=== PATIENT | female | born 1965 | race Caucasian/White ===

== ENCOUNTER 2017-05-07 07:15 | Inpatient (IN) | payer OTHER ==
[2017-05-07] MEDS ORDERED: morphINE PF 5 MG/10 ML INJ IT ONE (10:39)
[2017-05-07] MEDS ORDERED: ceFAZolin 2 GM/SWFI 2 GM/20 ML SYR IVP ONE (10:39)
[2017-05-07] MEDS ORDERED: morphINE SR 15 MG TAB PO ONE (10:39)
[2017-05-07] MEDS ORDERED: GABAPENTIN 300 MG CAP PO ONE (10:39)
[2017-05-07] MEDS ORDERED: ACETAMINOPHEN 500 MG TAB PO ONE (10:39)
[2017-05-07] MEDS ORDERED: LIDOCAINE 1% 2 ML INJ ID PRN (10:41)
[2017-05-07] MEDS ORDERED: LR 1,000 ML IV ONE (10:42)
[2017-05-07] MEDS ORDERED: LIDOCAINE 1% 2 ML INJ ONE (11:21)
[2017-05-07] MEDS ORDERED: THROMBIN (BOVINE) 20,000 UNIT VIAL TP ONE (11:35)
[2017-05-07] MEDS ORDERED: CHLORHEXIDINE GLUC HIBICLENS 118 ML BTL TP ONE (11:35)
[2017-05-07] MEDS ORDERED: BUPIVACAINE 0.25% 30 ML SDV ONE (11:35)
--- NOTE | 2017-05-07 11:35 | PDHPUP ---
History & Physical Update H&P update statement: This history and physical update is based on an assessment of the patient which was completed after admission or registration (within 24 hours), but prior to the surgery/procedure. H&P update: H&P reviewed & patient examined, no change in patient's condition since H&P completed (Consents signed and site marked. All questions answered.)
[2017-05-07] MEDS ORDERED: BACITRACIN 50,000 UNITS/10 ML SYR IRR ONE (11:36)
[2017-05-07] MEDS ORDERED: PROPOFOL/EMULSION 500 MG/50 ML BOTTLE IV ONE ×2 (11:43→12:08)
[2017-05-07] MEDS ORDERED: fentaNYL 250 MCG/5 ML INJ ONE (11:45)
[2017-05-07] MEDS ORDERED: MIDAZOLAM 2 MG/2 ML VIAL IVP ONE (12:01)
[2017-05-07] MEDS ORDERED: MIDAZOLAM 2 MG/2 ML VIAL ONE (12:01)
--- NOTE | 2017-05-07 12:03 | PDANEPAE ---
ANE History of Present Illness 51 year old woman for TLIF. Otherwise healthym ANE Past Medical History - Cardiovascular History Hx Hypertension: No Hx Arrhythmias: No Hx Chest Pain: No Hx Coronary Artery / Peripheral Vascular Disease: No Hx CHF / Valvular Disease: No Hx Palpitations: No Cardiovascular History Comment: PRE ECLAMPTIC W/FIRST CHILD - Pulmonary History Hx COPD: No Hx Asthma/Reactive Airway Disease: No Hx Recent Upper Respiratory Infection: No Hx Oxygen in Use at Home: No Hx Sleep Apnea: No Sleep Apnea Screening Result - Last Documented: Negative Pulmonary History Comment: ENVIRONMENTAL ALLERGIES - Neurologic History Hx Cerebrovascular Accident: No Hx Seizures: No Hx Dementia: No Neurologic History Comment: OCCAS MIGRAINES - OPTIC NERVE - Endocrine History Hx Diabetes: No - Renal History Hx Renal Disorders: No - Liver History Hx Hepatic Disorders: No - Neurological & Psychiatric Hx Hx Neurological and Psychiatric Disorders: Yes Neurological / Psychiatric History Comment: ANXIETY RELATED TO STRESS - Cancer History Hx Cancer: No - Congenital Disorder History Hx Congenital Disorders: No - GI History Hx Gastrointestinal Disorders: No - Other Health History Other Health History: OCCAS LOW BLOOD COUNTS(BORDERLINE) - Chronic Pain History Chronic Pain: Yes (BACK,HIP PAIN) - Surgical History Prior Surgeries: 2017 CYST ASPIRATION. KNEE R MENISCUS SCOPE 2011. C SECTION X2 ANE Review of Systems Review of Systems: - Exercise capacity METS (RN): 5 METS ANE Patient History - Allergies Allergies/Adverse Reactions: No Known Allergies Allergy (Unverified 03/31/17 10:24) - Home Medications Home Medications: Acetaminophen [Tylenol 325mg (*)] 325 mg PO DAILY PRN 03/31/17 [Last Taken 04/19] Albuterol [Proventil Inhaler HFA (*)] 1 - 2 puffs IH DAILY PRN 03/31/17 [Last Taken 05/07/16] Ibuprofen [Motrin (*)] 200 mg PO DAILY PRN 03/31/17 [Last Taken 04/19/17] Naproxen Sodium [Aleve 220 MG (*)] 220 mg PO BID PRN 03/31/17 [Last Taken ] - NPO status NPO Since - Liquids (Date): 05/07/17 NPO Since - Liquids (Time): 08:30 NPO Since - Solids (Date): 05/06/17 NPO Since - Solids (Time): 19:30 - Smoking Hx Smoking Status: Never smoked - Family Anes Hx Family Hx Anesthesia Complications: FATHER & MOTHER SENSITIVE TO ANESTH & PAIN MEDS ANE Labs/Vital Signs - Vital Signs Blood Pressure: 122/82 Heart Rate: 73 Respiratory Rate: 16 O2 Sat (%): 97 Height: 167.64 cm Weight: 58.967 kg ANE Physical Exam - Airway Mallampati Score: Class 2 Mouth exam: normal dental/mouth exam - Pulmonary Pulmonary: no respiratory distress - Cardiovascular Cardiovascular: regular rate and rhythym - ASA Status ASA Status: I
[2017-05-07] MEDS ORDERED: ONDANSETRON 4 MG/2 ML VIAL IVP PRN ×2 (12:44→15:11)
[2017-05-07] MEDS ORDERED: ACETAMINOPHEN 500 MG TAB PO PRN (12:44)
[2017-05-07] MEDS ORDERED: MEPERIDINE 25 MG/ML SYR IVP PRN (12:44)
[2017-05-07] MEDS ORDERED: fentaNYL 100 MCG/2 ML INJ IVP PRN (12:44)
[2017-05-07] MEDS ORDERED: DEXAMETHASONE 4 MG/ML VIAL IVP PRN (12:44)
[2017-05-07] MEDS ORDERED: OXYCODONE/APAP 5/325 TAB PO PRN (12:44)
[2017-05-07] MEDS ORDERED: METOCLOPRAMIDE 10 MG/2 ML VIAL IVP PRN (12:44)
[2017-05-07] MEDS ORDERED: ALBUTEROL 3 ML DEYVIAL IH PRN (12:44)
[2017-05-07] MEDS ORDERED: HYDROCODONE/APAP 5/325 TAB PO PRN (12:44)
[2017-05-07] MEDS ORDERED: PROMETHAZINE HCL 25 MG/ML INJ IVP PRN (12:44)
[2017-05-07] MEDS ORDERED: LR 500 ML IV PRN (12:44)
[2017-05-07] MEDS ORDERED: LABETALOL HCL 50 MG/10 ML SYR IVP PRN (12:44)
[2017-05-07] MEDS ORDERED: NALOXONE HCL 0.4 MG/ML INJ IVP PRN (12:44)
[2017-05-07] MEDS ORDERED: morphINE PF 5 MG/10 ML INJ ONE (13:58)
[2017-05-07] MEDS ORDERED: MAGNESIUM HYDROXIDE 30 ML UDCUP PO PRN (15:11)
[2017-05-07] MEDS ORDERED: ONDANSETRON DISINTEGRATING 4 MG TAB PO PRN (15:11)
[2017-05-07] MEDS ORDERED: LACTULOSE 20 GM/30 ML UDCUP PO PRN (15:11)
[2017-05-07] MEDS ORDERED: HYDROmorphone HCL/NS/PF 0.4 MG/2 ML SYR IVP PRN (15:11)
[2017-05-07] MEDS ORDERED: BISACODYL 10 MG SUPP PR PRN (15:11)
[2017-05-07] MEDS ORDERED: POLYETHYLENE GLYCOL 3350 17 GM PKT PO PRN (15:11)
[2017-05-07] MEDS ORDERED: diphenhydrAMINE 25 MG CAP PO PRN (15:11)
--- NOTE | 2017-05-07 15:13 | POSTANESTH ---
Post Anesthetic Evaluation Respiratory Status: Normal, Stable Level of Consciousness/Mental Status: Mildly Sleepy, Arousable Pain Control: Adequate, Prn Tx Ordered Nausea/Vomiting Control: Adequate, Prn Tx Ordered Complications Possibly Related to Anesthesia: None Noted
[2017-05-07] MEDS ORDERED: NS W/ 20 KCl/L 1,000 ML IV SCH (15:15)
[2017-05-07] MEDS ORDERED: ALBUTEROL 200 PUFFS/18 GM MDI IH PRN (15:17)
--- NOTE | 2017-05-07 15:23 | POSTOPPROG ---
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
[2017-05-07] MEDS ORDERED: MEPERIDINE 25 MG/ML SYR ONE (15:29)
[2017-05-07] MEDS: DIAZEPAM 10 MG/2 ML SYR IVP PRN ×2 (15:40→15:50)
[2017-05-07] MEDS ORDERED: DIAZEPAM 10 MG/2 ML SYR ONE (15:40)
--- NOTE | 2017-05-07 17:08 | GOP ---
[f rep st] OPERATIVE REPORT DATE OF OPERATION: 05/07/2017 SURGEON: Fernando Perales MD COMPLICATIONS: None. OVERHEAD CLEANER MAINTAINER: MADIHA Valdez. ANESTHESIA: General. PREOPERATIVE DIAGNOSIS: 1. L4-L5 spondylolisthesis. 2. L4-5 epidural compressive lesion with severe spinal stenosis. 3. Low back pain, lower extremity radiculopathy. 4. Treatment refractory to nonoperative management. POSTOPERATIVE DIAGNOSIS: 1. L4-L5 spondylolisthesis. 2. L4-5 epidural compressive lesion with severe spinal stenosis. 3. Low back pain, lower extremity radiculopathy. 4. Treatment refractory to nonoperative management. PROCEDURE PERFORMED: 1. Posterior arthrodesis with approach to L4-L5. 2. Posterolateral fusion with bilateral pedicle screw placement at L4 and L5 from the MuseStormra 4.75 system. 3. Decompressive laminectomy with bilateral medial facetectomies, L4-L5, with epidural lesion resection and spinal cord decompression. 4. Left-sided L4-5 transforaminal lumbar interbody fusion with a 7 x 23 mm titanium polyetheretherketone elevate cage filled with morselized autograft and allograft. 5. Posterolateral fusion on the right between L4-5 with morselized autograft and allograft. 6. Use of intraoperative 3D Stealth navigation. 7. Use of intraoperative fluoroscopy, less than 1 hour physician time. 8. Use of neuromonitoring. 9. Use of the operating microscope. 10. Injection of preservative-free intrathecal narcotics. FINDINGS: per imaging SPECIMENS: Epidural mass was sent to Pathology for permanent analysis. ESTIMATED BLOOD LOSS: 50 mL. INDICATIONS: The patient is a 51-year-old woman who unfortunately has been suffering from a several-year history of low back pain with lower extremity radiculopathy. She had evidence of a compressive lesion L4-5 with a grade 1 spondylolisthesis L4-5. After discussion of risks, benefits, and treatment alternatives, and after failing nonoperative interventions, we decided to proceed forth with surgery as described above. DESCRIPTION OF PROCEDURE: Patient was brought to the operating theater and underwent general endotracheal anesthesia without complications. She had Venodynes, KENDRA hose, and appropriate lines placed by Anesthesia. She was flipped prone onto the Grzegorz table and all bony processes inspected and padded. The lower lumbar region was prepped and draped in usual sterile surgical fashion. A time-out was completed per protocol and the patient received antibiotics within 1 hour of incision. Using lateral fluoroscopy and spinal needle, we picked our entry point at the L4 -L5 level. This was marked in the midline and the incision infiltrated with Marcaine with epinephrine. The incision was taken down with the scalpel blade, and then using the monopolar taken down the midline to the lumbodorsal fascia. A subperiosteal dissection was carried out to the transverse processes of L4 and L5. Care was taken to preserve the bilateral L3-4 facet joints. We attached the 3D Stealth navigation clamp to the spinous process of L5 and completed a 3D Stealth navigation spin. Using 3D Stealth navigation, we placed the elevator pilot holes for the bilateral pedicle screws into L4 and L5. All holes were manually palpated with no evidence of any cortical breaches. We then tapped and placed 6.5 x 45 mm screws bilaterally in L4 and 6.5 x 45 mm screws bilaterally in L5 from the [employer]ov[employer] Solera 4.75 system. Another 3D Stealth navigation spin demonstrated good placement of the hardware. At this point, the microscope was brought into the field to assist with microscopic dissection and maintain illumination and magnification. Using a combination of bur tip on the drill bit, Kerrison punches, and Leksell rongeur, we completed decompressive laminectomy at L4-L5, with bilateral medial facetectomies. There was a very large, cystic-appearing lesion on the left side in the epidural space, adherent to the ligamentum flavum. We resected the pars and the facet joint on the left side at L4-5. The lesion was also resected and then sent to Pathology for permanent analysis. There was adherent tissue within this space, also within the epidural space, which I did not feel comfortable resecting completely for fear of causing a CSF leak. Once I felt the spinal cord was well decompressed, we distracted the L4-5 interspace and completed a left-sided L4-L5 diskectomy. We prepared the cartilaginous endplates and measured interbody space. We then placed a 7 x 23 mm titanium PEEK Elevate cage filled with morselized autograft and allograft anteriorly toward the midline. We packed additional morcellized autograft into the disk space interbody fusion. We let down the distraction and decorticated the bone on the right side between L4-5. We placed 2 lordotic rods into the heads of the screws between L4-5 and secured them down with cap screws which were tightened per the hot cell technician's setting. We irrigated the wound copiously with bacitracin irrigation and left a drain in the subfascial space. We placed morselized autograft and allograft on the right side between L4-5 for the posterolateral fusion. The wound was then closed in multiple layers including Vicryl sutures in deep layers and Dermabond for the skin. The patient's wounds were dressed sterilely. She was flipped supine onto the transfer cart. She was awakened, extubated, and taken to the recovery room in stable condition. There were no complications and no noted changes on neuromonitoring throughout the procedure. /[id number]/MODL MTDD
[2017-05-07] MEDS: METHOCARBAMOL 750 MG TAB PO PRN (17:38)
[2017-05-07] MEDS: POLYETHYLENE GLYCOL 3350 17 GM PKT PO SCH ×2 (17:56→23:52)
[2017-05-07] MEDS: oxyCODONE IR 5 MG TAB PO PRN (19:47)
[2017-05-07] MEDS: SENNOSIDES/DOCUSATE SODIUM TAB PO SCH (21:11)
[2017-05-07] MEDS: ACETAMINOPHEN 500 MG TAB PO SCH (21:12)
[2017-05-07] MEDS: ceFAZolin 2 GM/DEXTROSE 100 ML IV SCH (21:12)
[2017-05-07] MEDS: FAMOTIDINE 20 MG TAB PO SCH (21:12)
[2017-05-08] MEDS: oxyCODONE IR 5 MG TAB PO PRN ×4 (02:08→19:18)
[2017-05-08] MEDS: ceFAZolin 2 GM/DEXTROSE 100 ML IV SCH (04:34)
[2017-05-08] MEDS: ACETAMINOPHEN 500 MG TAB PO SCH ×3 (05:23→20:38)
[2017-05-08] MEDS: METHOCARBAMOL 750 MG TAB PO PRN ×3 (07:13→20:38)
--- NOTE | 2017-05-08 08:26 | NEUSURGPN ---
Assessment/Plan: A: 51 yo F s/p L45 laminectomy/cyst resection with TLIF and posterior fusion POD1 P: PT/OT Brace when OOB TEDs, SCDs, lovenox Optimize Pain management Post op xrays pending extradural mass: pathology pending Seen by Dr. Perales and myself Call NS with any issues Subjective: low back pain. Denies any new leg pain, numbness, tingling or weakness Objective: NAD A&Ox3 MAEx4 5/5 and equal in BUE and BLE. Dressing c/d/i. DAVID drain serosanguineous Catheter Insertion Date: 05/07/17 - Physician Patient Seen by : Angella Neurosurgery Physical Exam - Vitals, I&O, Labs I and O 05/07/17 05/08/17 05/09/17 05:59 05:59 05:59 Intake Total 3360 Output Total 3070 1200 Balance 290 -1200 Weight 58.967 kg Intake: Oral (ml) 1660 IV Intake (ml) 1700 Output: Urine (ml) 2850 1200 Catheter 2850 1200 Estimated Blood Loss (ml) 50 DAVID Drain Output (ml) 170 Back Grzegorz Morton 170 Vital Signs Temp Pulse Resp BP Pulse Ox 97.8 C H 64 16 98/59 L 100 05/08/17 07:42 05/08/17 07:42 05/08/17 07:42 05/08/17 07:42 05/08/17 07:42 ICD10 Worksheet Patient Problems: Problems Problem Status Onset Lumbar stenosis Acute - ICD10 Problem Qualifiers (1) Lumbar stenosis
[2017-05-08] MEDS: SENNOSIDES/DOCUSATE SODIUM TAB PO SCH ×2 (09:04→20:37)
[2017-05-08] MEDS: FAMOTIDINE 20 MG TAB PO SCH ×2 (09:04→20:38)
[2017-05-08] MEDS ORDERED: NS 500 ML IV ONE (11:30)
[2017-05-08] MEDS: POLYETHYLENE GLYCOL 3350 17 GM PKT PO SCH ×3 (13:24→20:37)
--- NOTE | 2017-05-08 14:26 | ASMTCMCOM ---
CM Note CM Note Notes: Pt had planned spinal surgery, PT/OT clear pt for home. Anticipate pt will d/c when medically stable. CM available for changes/needs. Date Signed: 05/08/2017 02:25 PM Electronically Signed By:ROMAN Mcfarlane
[2017-05-08] MEDS: ENOXAPARIN 40 MG/0.4 ML SYR SC SCH (17:17)
[2017-05-09] MEDS: oxyCODONE IR 5 MG TAB PO PRN ×2 (03:15→08:14)
[2017-05-09] MEDS: METHOCARBAMOL 750 MG TAB PO PRN ×4 (03:17→22:55)
[2017-05-09] MEDS: ACETAMINOPHEN 500 MG TAB PO SCH (06:15)
[2017-05-09] MEDS: POLYETHYLENE GLYCOL 3350 17 GM PKT PO SCH ×3 (08:14→21:05)
[2017-05-09] MEDS: FAMOTIDINE 20 MG TAB PO SCH ×2 (08:14→21:05)
[2017-05-09] MEDS: SENNOSIDES/DOCUSATE SODIUM TAB PO SCH ×2 (08:14→21:04)
[2017-05-09] MEDS: ENOXAPARIN 40 MG/0.4 ML SYR SC SCH (08:15)
--- NOTE | 2017-05-09 10:49 | SOAPPROG ---
SOAP Progress Note Assessment/Plan: Assessment: POD#2 s/p L4/5 lami/TLIF Plan: - doing well, still a little overmedicated with the oxycodone, changing to [place] - drain output documented at 275 but this seems erroneous, will remove at 2pm - post-op xrays today - LSO brace when out of bed - lovenox - consider d/c tomorrow 05/09/17 10:45 Subjective: no major complaints, leg pain better Objective: Vital Signs Temp Pulse Resp BP Pulse Ox 36.7 C 75 16 121/69 H 99 05/09/17 07:59 05/09/17 07:59 05/09/17 07:59 05/09/17 09:30 05/09/17 07:59 05/08/17 05/09/17 05/10/17 05:59 05:59 05:59 Intake Total 3360 900 Output Total 3070 1460 Balance 290 -560 AAOx3, full strength and sensation, no drift, dressings c/d/i - Pending Discharge Pending Discharge Within 24 Hours: Yes Pending Discharge Within 48 Hours: Yes Pending Discharge Date: 05/10/17 Pending Discharge Time: 11:00 ICD10 Worksheet Patient Problems: Problems Problem Status Onset Lumbar stenosis Acute
[2017-05-09] MEDS: HYDROCODONE/APAP 5/325 TAB PO PRN ×3 (12:12→21:05)
[2017-05-10] MEDS: HYDROCODONE/APAP 5/325 TAB PO PRN ×2 (05:21→09:42)
[2017-05-10] MEDS: METHOCARBAMOL 750 MG TAB PO PRN ×2 (05:23→09:43)
[2017-05-10] MEDS: FAMOTIDINE 20 MG TAB PO SCH (08:14)
[2017-05-10] MEDS: ENOXAPARIN 40 MG/0.4 ML SYR SC SCH (08:14)
[2017-05-10] MEDS: POLYETHYLENE GLYCOL 3350 17 GM PKT PO SCH (08:14)
[2017-05-10] MEDS: SENNOSIDES/DOCUSATE SODIUM TAB PO SCH (08:14)
[2017-05-10 08:18] VITALS: BP 96/56; PULSE 85; RESP 16; TEMP 97.5; O2SAT 95
--- NOTE | 2017-05-10 09:38 | SOAPPROG ---
SOAP Progress Note Assessment/Plan: Assessment: POD#3 s/p L4/5 lami/TLIF Plan: - doing well, Glide much better for pain control - post-op xrays show intact hardware with good alignment - LSO brace when out of bed - lovenox - PT/OT - d/c home today 05/10/17 09:35 Subjective: no new events or complaints Objective: Vital Signs Temp Pulse Resp BP Pulse Ox 36.4 C 85 16 96/56 L 95 05/10/17 08:00 05/10/17 08:00 05/10/17 08:00 05/10/17 08:00 05/10/17 08:00 05/09/17 05/10/17 05/11/17 05:59 05:59 05:59 Intake Total 900 1100 Output Total 1460 50 Balance -560 1050 AAOx3, full strength, mild numbness in left great toe/top of foot, dressings c/d /i - Pending Discharge Pending Discharge Within 24 Hours: Yes Pending Discharge Within 48 Hours: Yes Pending Discharge Date: 05/11/17 Pending Discharge Time: 11:00 ICD10 Worksheet Patient Problems: Problems Problem Status Onset Lumbar stenosis Acute
--- NOTE | 2017-05-10 12:21 | ASMTCMCOM ---
CM Note CM Note Notes: Chart reviewed. Per therapies patient independent. Medically stable for dc per MD. CM available to follow should needs arise. Date Signed: 05/10/2017 12:21 PM Electronically Signed By:Valentina Marie RN
--- NOTE | 2017-05-10 16:18 | ASDISCHSUM ---
Discharge Information Plan Status:Home with No Needs Medically Cleared to Leave:05/10/2017 Discharge Date:05/10/2017 02:04 PM CM D/C Disposition:Home, Routine, Self-Care ADT D/C Disposition:Home, Routine, Self-Care Projected Discharge Date:05/10/2017 02:04 PM Transportation at D/C: Discharge Delay Reason: Follow-Up Date:05/10/2017 02:04 PM Discharge Slot: Final Diagnosis: Placement Information Patient Contact Information Contact Name:HERMILO Relationship: Address:[address] Work Phone: City:[place] Alternate Phone: [facility]/Zip Code:[place] [address] Email: Financial Information Financial Class:HMO and PPO Plans Primary Plan Desc:[employer] Primary Plan Number:[id number] Secondary Plan Desc: Secondary Plan Number: Assessment Information [facility] CM Progress Note CM Note CM Note Notes: Pt had planned spinal surgery, PT/OT clear pt for home. Anticipate pt will d/c when medically stable. CM available for changes/needs. Date Signed: 05/08/2017 02:25 PM Electronically Signed By:ROMAN Mcfarlane LACE KANDACE Length of stay for Answers: 3 days current admission Acuity / Level of Care Answers: No. Emergency dept visits in Answers: 0 last 6 months Score: 3 Date Signed: 05/10/2017 09:33 AM Electronically Signed By:Valentina Marie RN [facility] CM Progress Note CM Note CM Note Notes: Chart reviewed. Per therapies patient independent. Medically stable for dc per MD. CM available to follow should needs arise. Date Signed: 05/10/2017 12:21 PM Electronically Signed By:Valentina Marie RN Intervention Information
== END 2017-05-10 14:04 | disposition home or self-care (01) | DRG 460 ==
LOC: EDSEX 10:25 → F3N 10:25
PROVIDERS: ADMIT Neurological Surgery; ATTEND Neurological Surgery
PROC: 00NY0ZZ Release Lumbar Spinal Cord, Open Approach (ICD-10-PCS; principal; 2017-05-07 12:15)
PROC: 0SG007J Fusion of Lumbar Vertebral Joint with Autologous Tissue Substitute, Posterior Approach, Anterior Column, Open Approach (ICD-10-PCS; principal; 2017-05-07 12:15)
PROC: 8E0WXBF Computer Assisted Procedure of Trunk Region, With Fluoroscopy (ICD-10-PCS; principal; 2017-05-07 12:15)
PROC: 4A1004G Monitoring of Central Nervous Electrical Activity, Intraoperative, Open Approach (ICD-10-PCS; principal; 2017-05-07 12:15)
PROC: 3E0S3BZ Introduction of Anesthetic Agent into Epidural Space, Percutaneous Approach (ICD-10-PCS; principal; 2017-05-07 12:15)
PROC: 0QH004Z Insertion of Internal Fixation Device into Lumbar Vertebra, Open Approach (ICD-10-PCS; principal; 2017-05-07 12:15)
PROC: 0ST20ZZ Resection of Lumbar Vertebral Disc, Open Approach (ICD-10-PCS; principal; 2017-05-07 12:15)
PROC: 0SG00AJ Fusion of Lumbar Vertebral Joint with Interbody Fusion Device, Posterior Approach, Anterior Column, Open Approach (ICD-10-PCS; principal; 2017-05-07 12:15)
PROC: 00BY0ZX Excision of Lumbar Spinal Cord, Open Approach, Diagnostic (ICD-10-PCS; principal; 2017-05-07 12:15)
DX: M43.16 Spondylolisthesis, lumbar region (principal); M48.062 Spinal stenosis, lumbar region with neurogenic claudication; M71.38 Other bursal cyst, other site; M48.07 Spinal stenosis, lumbosacral region; M51.16 Intervertebral disc disorders with radiculopathy, lumbar region
CPT/HCPCS: 97116-GP; 97161-GP; 97165-GO; 97530-GO; 97530-GP; 97535-GO; C1713; J0171; J0690; J1170; J1650; J2250; J2274; J2704; J3010

== ENCOUNTER → 2017-06-25 | Outpatient (CLI) | payer OTHER | LOC: FIMAGING 16:10 | PROVIDERS: ATTEND Physician Assistant Surgical | DX: Z09 Encounter for follow-up examination after completed treatment for conditions other than malignant neoplasm (principal); Z98.1 Arthrodesis status ==

== ENCOUNTER → 2017-08-10 | Outpatient (CLI) | payer OTHER | LOC: FIMAGING 12:42 | PROVIDERS: ATTEND Physician Assistant | DX: Z98.1 Arthrodesis status (principal); M47.817 Spondylosis without myelopathy or radiculopathy, lumbosacral region ==

== ENCOUNTER → 2017-11-02 | Outpatient (CLI) | payer OTHER | LOC: FIMAGING 09:09 | PROVIDERS: ATTEND Physician Assistant Surgical | DX: Z09 Encounter for follow-up examination after completed treatment for conditions other than malignant neoplasm (principal); Z98.1 Arthrodesis status ==

== ENCOUNTER → 2017-11-10 | Outpatient (CLI) | payer OTHER | LOC: FIMAGING 06:54 | PROVIDERS: ATTEND Physician Assistant | DX: M51.26 Other intervertebral disc displacement, lumbar region (principal); M12.88 Other specific arthropathies, not elsewhere classified, other specified site; M43.16 Spondylolisthesis, lumbar region; Z98.1 Arthrodesis status ==

== ENCOUNTER → 2018-04-26 | Outpatient (CLI) | payer OTHER | LOC: FIMAGING 08:43 | PROVIDERS: ATTEND Physician Assistant Surgical | DX: Z09 Encounter for follow-up examination after completed treatment for conditions other than malignant neoplasm (principal); Z98.1 Arthrodesis status; M43.16 Spondylolisthesis, lumbar region ==